=== PATIENT | female | born 1950 | race Caucasian/White ===

== ENCOUNTER → 2016-09-28 08:40 | Outpatient (CLI) | payer MEDICARE, OTHER | END | disposition home or self-care (01) | LOC: D.MRI 08:40 | DX: R51 Headache (principal) ==

== ENCOUNTER → 2016-11-16 17:04 | Outpatient (CLI) | payer MEDICARE, OTHER | END | disposition home or self-care (01) | LOC: D.MAMMO 09:45 | DX: Z12.31 Encounter for screening mammogram for malignant neoplasm of breast (principal) ==

== ENCOUNTER → 2017-12-07 20:13 | Outpatient (CLI) | payer MEDICARE, OTHER | END | disposition home or self-care (01) | LOC: D.MAMMO 11:30 | DX: Z12.31 Encounter for screening mammogram for malignant neoplasm of breast (principal) ==

== ENCOUNTER 2019-01-23 17:00 | Outpatient (CLI) | payer MEDICARE, OTHER | END 2019-01-23 17:30 | disposition home or self-care (01) | LOC: D.MAMMO 17:00 | PROVIDERS: ATTEND Family Medicine | DX: Z12.31 Encounter for screening mammogram for malignant neoplasm of breast (principal) ==

== ENCOUNTER 2019-02-21 09:30 | Outpatient (CLI) | payer MEDICARE, OTHER | END 2019-02-21 10:00 | disposition home or self-care (01) | LOC: D.MAMMO 09:30 | PROVIDERS: ATTEND Family Medicine | DX: R92.8 Other abnormal and inconclusive findings on diagnostic imaging of breast (principal) ==

== ENCOUNTER → 2020-02-26 11:30 | Outpatient (CLI) | payer MEDICARE, OTHER | END | disposition home or self-care (01) | LOC: D.MAMMO 11:30 | PROVIDERS: ATTEND Family Medicine | DX: Z12.31 Encounter for screening mammogram for malignant neoplasm of breast (principal) ==